=== PATIENT | male | born 1935 | race Caucasian/White ===

== ENCOUNTER 2017-03-12 14:47 | Emergency (ER) | payer MEDICARE, OTHER ==
[2017-03-12 15:11] VITALS: BP 141/73
[2017-03-12] MEDS ORDERED: Bacitracin Oint 1 GM U/D Packet TOP ONE (15:49)
--- NOTE | 2017-03-12 15:49 | EDM.PDOC ---
ED HPI GENERAL MEDICAL PROBLEM - General Chief Complaint: Laceration Stated Complaint: FISH HOOK Time Seen by Provider: 03/12/17 15:50 Source of Information: Reports: Patient History Limitations: Reports: No Limitations - History of Present Illness INITIAL COMMENTS - FREE TEXT/NARRATIVE: Blane is a 81 year old male who presents to the ED today with fish hook in his right hand. Hook is a treble hook. Patient's DT is up to date. Hook is quite dirty. Patient denies any other injuries. 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 ED EXAM, SKIN/RASH Exam: See Below Exam Limited By: No Limitations General Appearance: Alert, WD/WN, No Apparent Distress Extremities: Normal Range of Motion, Other (Distal and proximal pulses are intact, patient demonstrates full ROM. Capillary refill is normal. ) Skin: Warm, Dry, Other (Fish hook stuck in right hand, dorsal aspect between thumb and index finger) Location, Skin: Other (right hand) Course - Vital Signs Text/Narrative:: Blane is a 81 year old male who presents to the ED today after getting fish- hook stuck in right hand. Patient's DT is up to date. Patient was anesthetized with 3 ml of 1% lidocaine around insertion site. Hook was pushed up through other side of skin and grasped with a needle power screwdriver operator. Proximal portion of hook was cut with cutter and remaining part was removed from other side with needle power screwdriver operator without difficulty. Patient tolerated procedure well, wound was well irrigated with NS, covered with bacitracin and bandaid. Based on depth of insertion and dirtiness of hook, I will start patient on a 7 day course of Keflex for infection prophylaxis. Wound care discussed in detail. Patient given reasons to return to the ED, he is agreeable to plan of care and questions answered. Patient discharged in stable condition. Last Recorded V/S: Last Vital Signs Temp 35.9 C 03/12/17 15:12 Pulse 68 03/12/17 15:12 Resp 18 03/12/17 15:12 BP 141/73 H 03/12/17 15:12 Pulse Ox 99 03/12/17 15:12 - Orders/Labs/Meds Meds: Medications Discontinued Medications Generic Name Dose Route Start Last Admin Trade Name Freq PRN Reason Stop Dose Admin Bacitracin 1 dose 03/12/17 15:49 03/12/17 16:07 Bacitracin Oint 1 Gm TOP 03/12/17 15:50 1 dose ONETIME ONE Administration Departure - Departure Time of Disposition: 16:00 Disposition: Home, Self-Care 01 Condition: good Clinical Impression: Removal of foreign body - Discharge Information Instructions: Puncture Wound, [id number] Referrals: PCP,None [Primary Care Provider] - Forms: ED Department Discharge
== END 2017-03-12 16:10 | disposition home or self-care (01) ==
LOC: JP.ED 14:47
DX: S60.551A Superficial foreign body of right hand, initial encounter (principal); Z88.0 Allergy status to penicillin; Z98.49 Cataract extraction status, unspecified eye; Z90.49 Acquired absence of other specified parts of digestive tract
CPT/HCPCS: 99283